=== PATIENT | female | born 1975 | race Caucasian/White ===

== ENCOUNTER 2016-07-29 07:10 | Emergency (ER) | payer OTHER ==
[2016-07-29 07:29] VITALS: BP 141/81; PULSE 79; RESP 16; TEMP 97.7; O2SAT 94
--- NOTE | 2016-07-29 07:41 | UCPHY ---
H & P Patient Type: Established HPI/ROS: CHIEF COMPLAINT: mild cough sinus pressure and plugging HISTORY OF PRESENT ILLNESS: Previously healthy 40-year-old female began with URI some 10 days ago. She contracted this by way of her who brought the terms home from work some 3 weeks ago. He has since improved. With her illness it was mild some 10 days ago. Little bit of a plugging of her nose and some postnasal drip with some dryness of the throat. However some week ago she started noting progressive fatigue. Some 3 days ago she started feeling markedly worse with the general mild cough without any pleuritic chest pain. Furthermore there was a sense of difficulty with further postnasal drip and market sinus drainage and marked blowing of her nose. There has been no fevers. REVIEW OF SYSTEMS: Constitutional - no fevers or chills. Eyes - no discharge, or injection ENT - no earache, change in hearing, difficulty swallowing, sore throat. Respiratory - No Shortness of breath, or wheezing or pleuritic chest pain. The cough is rattly at times. Musculoskeletal - no joint or muscle pain. Integument - no rashes. Neurological - no headache, numbness, tingling, or paresthesias. No focal motor weakness. Immunological - no swelling or lymphadenopathy. Smoking Status: Never smoked Physical Exam: Gen: Well developed, well nourished. Nontoxic. Afebrile HEENT: Normocephalic. Ears: TMs are clear. Hearing normal. She does have tenderness over the maxillary sinuses with palpation Eyes: PERRL. No conjunctival injection or pallor. no jaundice. Nose: No nasal discharge observed at this time however she arrives a large stack of tissues. Throat: Membranes are moist. Oropharynx is without erythema or exudate. Normal phonation. Lungs: Good air entry into both lungs. No rales rhonchi or wheezes. No air hunger. No respiratory distress. Skin: Good color, without pallor. There is no diaphoresis. Skin is warm and dry , without diaphoresis. Intact without rashes Constitutional: Initial Vital Signs Temperature (C) 36.5 C 07/29/16 07:26 Heart Rate 79 07/29/16 07:26 Respiratory Rate 16 07/29/16 07:26 Blood Pressure 141/81 H 07/29/16 07:26 O2 Sat (%) 94 07/29/16 07:26 O2 Delivery Mode Room Air Allergies/Adverse Reactions: No Known Allergies Allergy (Unverified 07/29/16 07:29) Home Medications: Medication Instructions Recorded Amox Tr/K Clav (Augmentin) 500 mg PO BID #10 tab 07/29/16 [Augmentin 500/125 MG TAB (*)] Amoxicillin 1,500 mg PO BID 5 Days 07/29/16 Bcp 07/29/16 Mucinex 07/29/16 Medical Decision Making ED Course/Re-evaluation: Symptoms are compatible with URI leading to acute sinusitis particular the maxillary area as noted in the physical exam. We have gone through the protocol of Augmentin 2000 mg however she will not be able to obtain that in the local pharmacies the do not stock that. Thereby she will have split prescriptions of Augmentin 500/125 as well as amoxicillin 1500, twice daily, 5d only. Differential Diagnosis: Diagnostic considerations include, but are not limited to, the following: URI, sinusitis, pharyngitis, otitis media, pneumonia, allergy. Departure - Departure Disposition: Home, Routine, Self-Care Clinical Impression: Sinusitis, acute Qualifiers: Sinusitis location: frontal Recurrence: non-recurrent Qualified Code(s): J01.10 - Acute frontal sinusitis, unspecified Condition: Good Instructions: Sinusitis (ED) Referrals: Lesly Arredondo DO [Primary Care Provider] - As per Instructions Prescriptions: Amox Tr/K Clav (Augmentin) [Augmentin 500/125 MG TAB (*)] 500 mg PO BID #10 tab Amoxicillin 1,500 mg PO BID 5 Days - PQRS PQRS Measurement: NA
== END 2016-07-29 08:16 | disposition home or self-care (01) ==
LOC: CED 07:10
DX: J01.10 Acute frontal sinusitis, unspecified (principal)
CPT/HCPCS: 99214-PO; G0463-PO

== ENCOUNTER → 2017-03-27 | Outpatient (CLI) | payer OTHER | LOC: FIMAGING 14:05 | PROVIDERS: ATTEND Family Medicine | DX: Z12.31 Encounter for screening mammogram for malignant neoplasm of breast (principal) | CPT/HCPCS: G0202 ==

== ENCOUNTER → 2017-04-03 | Outpatient (CLI) | payer OTHER | LOC: FIMAGING 15:08 | PROVIDERS: ATTEND Family Medicine | DX: N63.10 Unspecified lump in the right breast, unspecified quadrant (principal) ==

== ENCOUNTER → 2017-04-09 | Outpatient (CLI) | payer OTHER ==
[~2017-04-09] MED LIST: BUPIVACAINE 0.5% 10 ML SDV ONE; LIDOCAINE 1% 300 MG/30 ML SDV ONE; THROMBIN (BOVINE) 5,000 UNIT VIAL TP ONE
== END ==
LOC: FIMAGING 08:24
PROVIDERS: ATTEND Family Medicine
PROC: 0HBT3ZX Excision of Right Breast, Percutaneous Approach, Diagnostic (ICD-10-PCS; principal; 2017-04-09)
DX: N60.31 Fibrosclerosis of right breast (principal); Z85.3 Personal history of malignant neoplasm of breast
CPT/HCPCS: G0206